=== PATIENT | female | born 1955 | race Caucasian/White ===

== ENCOUNTER 2017-01-30 12:44 | Emergency (ER) | payer MEDICARE, OTHER | END 2017-01-30 18:00 | disposition home or self-care (01) | LOC: ER1 12:44 | DX: J44.9 Chronic obstructive pulmonary disease, unspecified (principal); J04.0 Acute laryngitis; Z87.891 Personal history of nicotine dependence; Z91.041 Radiographic dye allergy status; Z79.899 Other long term (current) drug therapy | CPT/HCPCS: 36415; 71020; 93005; 99283 ==

== ENCOUNTER → 2021-05-13 | Outpatient (CLI) | payer MEDICARE, OTHER | LOC: EXRD 08:36 | DX: M54.5 Low back pain (principal); M47.812 Spondylosis without myelopathy or radiculopathy, cervical region; M47.814 Spondylosis without myelopathy or radiculopathy, thoracic region; M47.816 Spondylosis without myelopathy or radiculopathy, lumbar region; M50.322 Other cervical disc degeneration at C5-C6 level; M51.34 Other intervertebral disc degeneration, thoracic region; M51.36 Other intervertebral disc degeneration, lumbar region | CPT/HCPCS: 72050; 72070; 72100 ==

== ENCOUNTER → 2021-10-12 | Day surgery (SDC) | payer MEDICARE, OTHER ==
[~2021-10-12] MED LIST: ALPRAZOLAM1 MG PO; BUSPIRONE HCL5 MG PO; CRESTOR20 MG PO; HYDROCODON-ACE1 EAC6 PO; ISOSORBIDE MONO60 MG PO; METOPROLOL SUCC50 MG PO
== END | disposition home or self-care (01) ==
LOC: OR 06:28
DX: Z12.11 Encounter for screening for malignant neoplasm of colon (principal); K63.5 Polyp of colon; K57.30 Diverticulosis of large intestine without perforation or abscess without bleeding; M19.90 Unspecified osteoarthritis, unspecified site; I25.10 Atherosclerotic heart disease of native coronary artery without angina pectoris; J44.9 Chronic obstructive pulmonary disease, unspecified; K21.9 Gastro-esophageal reflux disease without esophagitis; E78.5 Hyperlipidemia, unspecified; I10 Essential (primary) hypertension; F17.210 Nicotine dependence, cigarettes, uncomplicated; Z91.041 Radiographic dye allergy status; Z90.49 Acquired absence of other specified parts of digestive tract; Z90.710 Acquired absence of both cervix and uterus; Z98.61 Coronary angioplasty status; Z86.010 Personal history of colon polyps; Z20.822 Contact with and (suspected) exposure to COVID-19
CPT/HCPCS: J2704; J7120

== ENCOUNTER → 2021-10-18 | Outpatient (CLI) | payer MEDICARE, OTHER | LOC: MAMO 06-01 10:30 → EXRD 06-01 11:30 → MAMO 09-26 14:30 → EXRD 10-10 09:00 → MAMO 08:30 → EXRD 09:46 | DX: M85.88 Other specified disorders of bone density and structure, other site (principal); Z78.0 Asymptomatic menopausal state | CPT/HCPCS: 77080 ==